=== PATIENT | female | born 1985 | race Two or more races ===

== ENCOUNTER → 2024-01-01 06:55 | Outpatient (REF) | payer BC, SELFPAY | LOC: PNTC 06:55 | PROVIDERS: ATTENDING PHYSICIAN Obstetrics & Gynecology | DX: Z36.0 Encounter for antenatal screening for chromosomal anomalies (principal); Z36.82 Encounter for antenatal screening for nuchal translucency; O09.529 Supervision of elderly multigravida, unspecified trimester | CPT/HCPCS: 76801; 76813 ==

== ENCOUNTER → 2024-02-20 15:59 | Outpatient (REF) | payer BC, SELFPAY | LOC: PNTC 15:59 | PROVIDERS: ATTENDING PHYSICIAN Obstetrics & Gynecology | DX: O09.519 Supervision of elderly primigravida, unspecified trimester (principal) | CPT/HCPCS: 76811 ==

== ENCOUNTER → 2024-04-07 17:19 | Outpatient (REF) | payer BC, SELFPAY | LOC: PNTC 17:19 | PROVIDERS: ATTENDING PHYSICIAN Obstetrics & Gynecology | DX: O09.519 Supervision of elderly primigravida, unspecified trimester (principal) | CPT/HCPCS: 76816 ==

== ENCOUNTER → 2024-04-20 07:05 | Outpatient (REF) | payer BC, SELFPAY ==
--- NOTE | 2024-04-20 07:13 | PN.DIAED06 ---
Meal Plan - Gestational
- Breakfast
Gestational Diabetes Meal Plan Name: 1800 calories
Breakfast - Total Carbohydrate (grams): 30
Breakfast - Starch Carbohydrate: 1
Breakfast - Fruit Carbohydrate: 0
Breakfast - Milk Carbohydrate: 1
Breakfast - Nonstarchy Vegetables: Yes
Breakfast - Meat/Protein: 1
Breakfast - Fat: 2
- Morning Snack
Morning Snack - Total Carbohydrate (grams): 30
Morning Snack - Starch Carbohydrate: 1
Morning Snack - Fruit Carbohydrate: 0
Morning Snack - Milk Carbohydrate: 1
Morning Snack - Nonstarchy Vegetables: Yes
Morning Snack - Meat/Protein: 0.5
Morning Snack - Fat: 0
- Lunch
Lunch - Total Carbohydrate (grams): 45
Lunch - Starch Carbohydrate: 2
Lunch - Fruit Carbohydrate: 1
Lunch - Milk Carbohydrate: 0
Lunch - Nonstarchy Vegetables: Yes
Lunch - Meat/Protein: 2
Lunch - Fat: 1
- Afternoon Snack
Afternoon Snack - Total Carbohydrate (grams): 30
Afternoon Snack - Starch Carbohydrate: 1
Afternoon Snack - Fruit Carbohydrate: 1
Afternoon Snack - Milk Carbohydrate: 0
Afternoon Snack - Nonstarchy Vegetables: Yes
Afternoon Snack - Meat/Protein: 1
Afternoon Snack - Fat: 0
- Dinner
Dinner - Total Carbohydrate (grams): 45
Dinner - Starch Carbohydrate: 2
Dinner - Fruit Carbohydrate: 0
Dinner - Milk Carbohydrate: 1
Dinner - Nonstarchy Vegetables: Yes
Dinner - Meat/Protein: 2
Dinner - Fat: 2
- Evening Snack
Evening Snack - Total Carbohydrate (grams): 30
Evening Snack - Starch Carbohydrate: 1
Evening Snack - Fruit Carbohydrate: 0
Evening Snack - Milk Carbohydrate: 1
Evening Snack - Nonstarchy Vegetables: Yes
Evening Snack - Meat/Protein: 1
Evening Snack - Fat: 1
--- NOTE | 2024-04-20 10:34 | PN.DE ---
Diabetes Education
- -
Met with Ms. Kent today, , currently at 28 weeks of gestation, here today for medical nutrition therapy.
Explained glucose metabolism in body and what occurs during to cause increase blood sugar. Discussed importance of keeping BS well controlled to avoid complications to the baby during and after (macrosomia, hypoglycemia). Explained
to Gena that she is at increased risk of developing T2DM in the future. Karen reports that she has a CGM- Wojciech 2 and has been monitoring her blood sugars 2 hrs after each meal since dx of GDM.
Discussed expected results for FBS <95 mg/dl and 2 hr pp <120 mg/dl.
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 She does not eat much of non-starchy vegetables, she states that she eats a power bar everyday for breakfast and a kind bar for snack while at work.
Explained high carbohydrate content of processed foods and snacks and the effect they have on blood sugar. Provided with 1800 ileana GDM meal plan. She was educated on how to read a nutritional fact label and look at total CHO in relation to serving
size. No fruit or fruit juice until noontime. Provided with handout on snacks as well as 'Choose Your Foods' booklet. A Log sheet was provided for her to record results, she will send her 4 day meal log with all her FBG and 2hr Post prandial glucose
numbers to this office for review. In addition, she will send all her glucose readings to at [facility] every Saturday. She was encouraged to keep a regular activity schedule and will reach out should she require insulin.
== END ==
LOC: DES 07:05
PROVIDERS: ATTENDING PHYSICIAN Student in an Organized Health Care Education/Training Program
DX: O24.419 Gestational diabetes mellitus in pregnancy, unspecified control (principal)
CPT/HCPCS: 99078

== ENCOUNTER → 2024-05-18 17:23 | Outpatient (REF) | payer BC, SELFPAY | LOC: PNTC 17:23 | PROVIDERS: ATTENDING PHYSICIAN Obstetrics & Gynecology | DX: O09.529 Supervision of elderly multigravida, unspecified trimester (principal) | CPT/HCPCS: 76816 ==

== ENCOUNTER 2024-06-19 06:41 | Inpatient (IN) | payer BC, SELFPAY ==
[2024-06-19 07:16] VITALS: BP 110/68; BMI 27.5
[2024-06-19] MEDS: LR 1000 IV ×2 (07:40→08:37)
[2024-06-19 08:00] LABS: Hematocrit 36.5 % (37.0-47.0); Hemoglobin 12.5 g/dL (12.0-16.0); Mean Corp Hgb Conc. 34.2 g/dL (33.0-37.0); Mean Corpuscular Hgb 31.1 pg (27.0-31.0); Mean Corpuscular Volume 90.8 fL (81.0-99.0); Mean Platelet Volume 10.1 fL (7.4-10.4); Platelet Count 257 10^3/uL (130-400); Red Blood Cell Count 4.02 10^6/uL (4.20-5.40); Red Cell Dist. Width 13.2 % (11.5-14.5); White Blood Cell Count 6.3 10^3/uL (4.8-10.8)
[2024-06-19] MEDS: TYLENOL 1000 MG PO (08:14)
[2024-06-19] MEDS: BICITRA 30 ML PO (08:14)
[2024-06-19] MEDS: ANCEF 10 IV (08:15)
[2024-06-19 08:31] LABS: Glucose - Point of Care 74 mg/dl (70-99)
[2024-06-19] MEDS: TORADOL 15 MG IV ×2 (16:04→22:00)
[2024-06-19] MEDS: PRENATAL PLUS 1 TABLET PO (21:59)
[2024-06-20] MEDS: TORADOL 15 MG IV ×2 (04:27→09:58)
[2024-06-20 05:10] LABS: Hematocrit 31.9 % (37.0-47.0); Hemoglobin 10.6 g/dL (12.0-16.0); Mean Corp Hgb Conc. 33.2 g/dL (33.0-37.0); Mean Corpuscular Volume 93.3 fL (81.0-99.0); Mean Platelet Volume 10.2 fL (7.4-10.4); Platelet Count 224 10^3/uL (130-400); Red Blood Cell Count 3.42 10^6/uL (4.20-5.40); Red Cell Dist. Width 13.4 % (11.5-14.5); White Blood Cell Count 9.5 10^3/uL (4.8-10.8)
[2024-06-20] MEDS: SENOKOT-S 1 TABLET PO (09:59)
--- NOTE | 2024-06-20 17:22 | W.PN.ANS.POP ---
Anesthesia Post Operative
- Anesthesia Post Op Note
Vital Signs Stable-See Nursing Note: Yes
Airway Patent: Yes
Adequate Pain Control: Yes
Change in Mental Status: No
Current Postoperative Nausea & Vomiting: No
Anesthesia Complications: No
General Anesthetic Recall: No
Unplanned Admission: No
Post Op Hydration Adequate: Yes
- -
Pt doing well, OOB ambulating, no n/v, no anesthesia related C/O. Visiting with family.
[2024-06-20] MEDS: MOTRIN 600 MG PO (19:33)
[2024-06-20] MEDS: PRENATAL PLUS 1 TABLET PO (21:40)
[2024-06-21] MEDS: MOTRIN 600 MG PO (03:30)
--- NOTE | 2024-06-21 11:53 | W.DS.TRANS ---
DC Summary - [employer]iding [employer]
-
Discharge Instructions:
Discharge Diagnosis/Procedures 37 wks delivered by repeat low
transverse csection; anemia
Diet Regular
Activity No strenuous activity
Driving Restrictions No driving for 2 weeks
Bathing Restrictions OK to Shower
Instructions:
Stand-Alone Forms: LDRP Delivery
Changes to Home Medications: No
Discharge Medications:
DC Medications w/original date entered in [facility]
prenat.vits,ileana,ylz-lczw-iujmc 1 tab PO HS Supplement 06/19/24
acetaminophen 325 mg tablet 650 mg (2 x 325 mg) PO Q4HPRN PRN mild pain #0 tabs 06/20/24
ibuprofen 600 mg tablet 600 mg PO Q6HPRN PRN cramps #0 tabs 06/20/24
Home Medication Changes
Pending Results: Yes
Additional Pending Results:
surgical pathology
[2024-06-23 13:20] LABS: Syphilis/T. pallidum Ab Reflex Negative (Negative)
== END 2024-06-21 11:59 | disposition home or self-care (01) | DRG 788 ==
LOC: LDRP 06:41
PROVIDERS: ADMITTING PHYSICIAN Obstetrics & Gynecology
PROC: 10D00Z1 Extraction of Products of Conception, Low, Open Approach (ICD-10-PCS; 2024-06-19)
DX: O34.211 Maternal care for low transverse scar from previous cesarean delivery (principal); Z3A.37 37 weeks gestation of pregnancy; Z37.0 Single live birth; O24.420 Gestational diabetes mellitus in childbirth, diet controlled; N80.03 Adenomyosis of the uterus; O99.892 Other specified diseases and conditions complicating childbirth
CPT/HCPCS: 88307; 36415; 82962; 85027; 86780; 86850; 86900; 86901

== ENCOUNTER → 2024-08-19 13:47 | Outpatient (REF) | payer BC, SELFPAY | LOC: WDC 13:47 | PROVIDERS: ATTENDING PHYSICIAN Obstetrics & Gynecology | DX: N63.20 Unspecified lump in the left breast, unspecified quadrant (principal) | CPT/HCPCS: 76642 ==

== ENCOUNTER 2024-11-30 06:26 | Day surgery (SDC) | payer BC, SELFPAY | END 2024-11-30 10:21 | disposition home or self-care (01) | LOC: GI 06:26 | PROVIDERS: ATTENDING PHYSICIAN Internal Medicine Gastroenterology | DX: K62.5 Hemorrhage of anus and rectum (principal); K64.0 First degree hemorrhoids; Q43.8 Other specified congenital malformations of intestine; D12.5 Benign neoplasm of sigmoid colon; K63.5 Polyp of colon | CPT/HCPCS: 45380; 88305 ==